=== PATIENT | female | born 1960 | race Caucasian/White ===

== ENCOUNTER 2017-04-30 08:00 | Outpatient (CLI) | payer BC, OTHER ==
[2017-04-30 13:24] LABS: BASOPHILS % (AUTO) 0.5 %; EOSINOPHILS # (AUTO) 0.1 10^3/uL (0.0-0.7); EOSINOPHILS % (AUTO) 0.8 %; HCT - HEMATOCRIT 40.5 % (37.0-47.0); HGB - HEMOGLOBIN 13.6 g/dL (12.0-16.0); LYMPHOCYTES # (AUTO) 1.6 10^3/uL (1.5-3.5); LYMPHOCYTES % (AUTO) 21.9 %; MEAN CORPUSCULAR HEMOGLOBIN 29.8 pg (27.0-31.0); MEAN CORPUSCULAR HGB CONC 33.6 g/dL (32.0-36.0); MEAN CORPUSCULAR VOLUME 88.7 fL (81.0-99.0); MEAN PLATELET VOLUME 8.2 fL (7.9-10.8); MONOCYTES # (AUTO) 0.4 10^3/uL (0.0-1.0); NEUTROPHILS # (AUTO) 5.1 10^3/uL (1.5-6.6); NEUTROPHILS % (AUTO) 70.8 %; NUCLEATED RED BLOOD CELLS AUTO 0.1 /100WBC; RED BLOOD COUNT 4.57 10^6/uL (4.20-5.40); RED CELL DISTRIBUTION WIDTH 13.2 % (12.0-15.0); UNCORRECTED WHITE BLOOD COUNT 7.1 x10^3/uL; WHITE BLOOD COUNT 7.1 x10^3/uL (4.8-10.8)
[2017-04-30 14:00] LABS: HEMOGLOBIN A1C 0.5 g/dL
[2017-04-30 14:08] LABS: ALBUMIN/GLOBULIN RATIO 1.4 (1.0-2.2); BILIRUBIN,TOTAL 0.6 mg/dL (0.2-1.0); BUN - BLOOD UREA NITROGEN 22 mg/dL (6-20); CALCIUM 9.4 mg/dL (8.5-10.3); CARBON DIOXIDE - CO2 26 mmol/L (21-32); CHLORIDE 102 mmol/L (101-111); CHOL/HDL RATIO 3.4 (<4.4); CHOLESTEROL 201 mg/dL; CREATININE 0.9 mg/dL (0.4-1.0); GFR - MDRD 65 (>89); GLUCOSE 97 mg/dL (70-100); HDL CHOLESTEROL 59 mg/dL; LDL/HDL RATIO 2.2 (<4.4); POTASSIUM 4.3 mmol/L (3.5-5.0); SODIUM 135 mmol/L (135-145); TOTAL PROTEIN 7.4 g/dL (6.7-8.2); TRIGLYCERIDES 56 mg/dL; VLDL CHOLESTEROL 11 mg/dL
== END 2017-04-30 08:01 | disposition home or self-care (01) ==
LOC: LAB.WCP 08:00
PROVIDERS: ATTEND Family Medicine
DX: Z00.00 Encounter for general adult medical examination without abnormal findings (principal); R73.03 Prediabetes
CPT/HCPCS: 36415; 80053; 80061; 83036; 84443; 85025

== ENCOUNTER 2017-10-30 07:20 | Outpatient (CLI) | payer BC ==
--- NOTE | 2017-10-30 08:14 | CT Report ---
EXAM: CT ABDOMEN AND PELVIS EXAM DATE: 10/30/2017 08:02 AM. CLINICAL HISTORY: HEMTURIA, FLANK PAIN, RIGHT. COMPARISONS: 03/27/2009. TECHNIQUE: Routine helical CT imaging was performed through the abdomen and pelvis. IV contrast: Amt/ type. Enteric contrast: No. Reconstructions: Coronal and sagittal. In accordance with CT protocol optimization, one or more of the following dose reduction techniques w ere utilized for this exam: automated exposure control, adjustment of mA and/or KV based on patient s ize, or use of iterative reconstructive technique. FINDINGS: Lung Bases: Unremarkable. Liver: Normal. No masses. Gallbladder/Bile Ducts: Unremarkable. Spleen: Normal. Pancreas: Normal. Adrenal Glands: Normal. Kidneys: No hydronephrosis or asymmetric perinephric stranding. No calculi noted within the urinary c ollecting system. Peritoneal Cavity/Bowel: Normal. No free fluid, free air or adenopathy. No masses or acute inflammato ry process. The appendix is well visualized and normal. Pelvic Organs: Normal. The bladder and visualized pelvic organs are within normal limits. Vasculature: No aneurysms or other significant abnormality. Bones: No significant abnormality. Other: None. IMPRESSION: No hydronephrosis or urinary calculi. [facility] Referring Provider Line: [phone] SITE ID: [id number]
== END 2017-10-30 07:21 | disposition home or self-care (01) ==
LOC: DI 07:20
PROVIDERS: ATTEND Family Medicine
DX: R31.9 Hematuria, unspecified (principal)
CPT/HCPCS: 74176

== ENCOUNTER 2020-07-01 17:21 | Outpatient (CLI) | payer OTHER | END 2020-07-01 17:22 | disposition home or self-care (01) | LOC: COV 17:21 | PROVIDERS: ATTEND Family Medicine | DX: Z20.828 Contact with and (suspected) exposure to other viral communicable diseases (principal) ==

== ENCOUNTER 2021-08-11 16:26 | Outpatient (CLI) | payer OTHER ==
--- NOTE | 2021-08-11 17:05 | XRAY Report ---
PROCEDURE: Knee 4 View RT INDICATIONS: R KNEE PX TECHNIQUE: 4 views of the right knee(s) were acquired. COMPARISON: None. FINDINGS: Bones: No fractures or dislocations. Mild to moderate tricompartmental osteoarthritis is seen more prominent in medial femoral tibial compartment. No patellar subluxation. No suspicious bony lesions. Soft tissues: No joint effusion. No suspicious soft tissue calcifications. IMPRESSION: Mild to moderate tricompartmental osteophyte is more prominent in medial femoral tibial compartment. No fracture or dislocation. No significant joint effusion. Reviewed by: Casa Clemens MD on 08/11/2021 5:04 PM PST Approved by: Casa Clemens MD on 08/11/2021 5:04 PM PST Station ID: [id number]
== END 2021-08-11 16:27 | disposition home or self-care (01) ==
LOC: DI.N 16:26
PROVIDERS: ATTEND Family Medicine
DX: M25.761 Osteophyte, right knee (principal)

== ENCOUNTER 2022-05-06 11:02 | Outpatient (CLI) | payer OTHER ==
--- NOTE | 2022-05-07 12:53 | Mammography Report ---
BILATERAL DIGITAL SCREENING MAMMOGRAM 3D/2D: 05/06/2022 CLINICAL: Family history of breast cancer. Routine screening. Comparison is made to exams dated: 05/13/2017 mammogram, 12/27/2014 mammogram, and 08/10/2013 mammogram - [facility]. Both breasts are heterogeneously dense, which may obscure small masses (category c / 51-75% glandular tissue). There are benign vascular calcifications in the left breast. No significant masses, calcifications, or other findings are seen in either breast. There has been no significant interval change. IMPRESSION: BENIGN There is no mammographic evidence of malignancy. A 1 year screening mammogram is recommended. This exam was interpreted at Station ID: [id number]. NOTE: For mammograms, a report in lay terms will be sent to the patient. Approximately 15% of breast malignancies will not be visualized mammographically. In the management of a palpable breast mass, a negative mammogram must not discourage biopsy of a clinically suspicious lesion. Electronically Signed By: Jam Martinez M.D., jr/arlet:05/06/2022 15:17:07 ACR BI-RADS Category 2: Benign Finding(s) 3342F PARENCHYMAL PATTERN: (D) - The breast(s) demonstrate(s) heterogeneously dense fibroglandular javad green. BI-RADS CATEGORY: (2) - 2 RECOMMENDATION: (ANNUAL) - Recommend routine annual screening mammography. [id number] 1 year screening LATERALITY: (B)
== END 2022-05-06 11:03 | disposition home or self-care (01) ==
LOC: DI.N 11:02
PROVIDERS: ATTEND Physician Assistant
DX: Z12.31 Encounter for screening mammogram for malignant neoplasm of breast (principal); Z80.3 Family history of malignant neoplasm of breast

== ENCOUNTER 2022-05-08 07:25 | Outpatient (CLI) | payer OTHER ==
[2022-05-08 12:04] LABS: BASOPHILS # (AUTO) 0.1 10^3/uL (0.0-0.1); BASOPHILS % (AUTO) 0.6 %; EOSINOPHILS # (AUTO) 0.1 10^3/uL (0.0-0.7); EOSINOPHILS % (AUTO) 1.3 %; HCT - HEMATOCRIT 41.7 % (37.0-47.0); HGB - HEMOGLOBIN 13.2 g/dL (12.0-16.0); LYMPHOCYTES % (AUTO) 25.2 %; MEAN CORPUSCULAR HEMOGLOBIN 28.9 pg (27.0-31.0); MEAN CORPUSCULAR HGB CONC 31.7 g/dL (32.0-36.0); MEAN CORPUSCULAR VOLUME 91.2 fL (81.0-99.0); MEAN PLATELET VOLUME 10.5 fL (7.9-10.8); MONOCYTES # (AUTO) 0.5 10^3/uL (0.0-1.0); MONOCYTES % (AUTO) 6.9 %; NEUTROPHILS # (AUTO) 5.2 10^3/uL (1.5-6.6); NEUTROPHILS % (AUTO) 65.7 %; PLT - PLATELET COUNT 260 10^3/uL (130-450); RED BLOOD COUNT 4.57 10^6/uL (4.20-5.40); RED CELL DISTRIBUTION WIDTH 13.7 % (12.0-15.0); WHITE BLOOD COUNT 7.9 x10^3/uL (4.8-10.8)
[2022-05-08 12:31] LABS: ALBUMIN 4.3 g/dL (3.2-5.5); ALBUMIN/GLOBULIN RATIO 1.3 (1.0-2.2); ALKALINE PHOSPHATASE 74 IU/L (42-121); ALT ALANINE AMINOTRANSFERASE 16 IU/L (10-60); AST ASPARTATE AMINOTRANSFERASE 20 IU/L (10-42); BILIRUBIN,TOTAL 0.7 mg/dL (0.2-1.0); BUN - BLOOD UREA NITROGEN 37 mg/dL (6-20); CALCIUM 9.6 mg/dL (8.5-10.3); CARBON DIOXIDE - CO2 27 mmol/L (21-32); CHLORIDE 103 mmol/L (101-111); CHOL/HDL RATIO 3.6 (<4.4); CHOLESTEROL 215 mg/dL; CREATININE 0.8 mg/dL (0.4-1.0); GFR - MDRD 73 (>89); GLUCOSE 105 mg/dL (70-100); HDL CHOLESTEROL 60 mg/dL; LDL CHOLESTEROL,CALCULATED 145 mg/dL; LDL/HDL RATIO 2.4 (<4.4); SODIUM 138 mmol/L (135-145); TOTAL PROTEIN 7.6 g/dL (6.7-8.2); TRIGLYCERIDES 51 mg/dL; VLDL CHOLESTEROL 10 mg/dL
[2022-05-08 12:42] LABS: THYROID STIMULATING HORMONE 3.21 uIU/mL (0.34-5.60)
== END 2022-05-08 07:26 | disposition home or self-care (01) ==
LOC: LAB.N 07:25
PROVIDERS: ATTEND Physician Assistant
DX: E78.5 Hyperlipidemia, unspecified (principal); Z51.81 Encounter for therapeutic drug level monitoring; Z13.29 Encounter for screening for other suspected endocrine disorder
CPT/HCPCS: 36415; 80053; 80061; 83721; 84443; 85025

== ENCOUNTER 2022-06-03 09:54 | Outpatient (CLI) | payer OTHER ==
--- NOTE | 2022-06-03 13:06 | XRAY Report ---
PROCEDURE: Hips 2V BILAT INDICATIONS: L HIP PX TECHNIQUE: AP view of the pelvis and lateral views of the hips bilaterally. COMPARISON: None FINDINGS: Bones: No fractures or dislocations. No suspicious bony lesions. The visualized pelvic ring appear s intact. Soft tissues: No suspicious soft tissue calcifications or masses. IMPRESSION: Normal pelvis and bilateral hips. Reviewed by: Ezra Garibay on 06/03/2022 1:05 PM [facility] Approved by: Ezra Garibay on 06/03/2022 1:05 PM [facility] Station ID: [id number]
== END 2022-06-03 09:55 | disposition home or self-care (01) ==
LOC: DI.N 09:54
PROVIDERS: ATTEND Physician Assistant
DX: M25.552 Pain in left hip (principal)

== ENCOUNTER 2023-02-17 11:17 | Outpatient (CLI) | payer OTHER ==
--- NOTE | 2023-02-17 14:37 | XRAY Report ---
PROCEDURE: Knee 3 View RT INDICATIONS: KNEE PAIN TECHNIQUE: 3 views of the right knee(s) were acquired. COMPARISON: None. FINDINGS: Bones: No fractures or dislocations. No suspicious bony lesions. Moderate medial and lateral compar tmental joint space narrowing with marginal osteophyte Soft tissues: Small knee joint effusion. No suspicious soft tissue calcifications or masses. IMPRESSION: Moderate osteoarthritis Reviewed by: Pasha Vogel MD on 02/17/2023 1:36 PM [facility] Approved by: Pasha Vogel MD on 02/17/2023 1:36 PM [facility] Station ID: [id number]
== END 2023-02-17 11:18 | disposition home or self-care (01) ==
LOC: DI 11:17
PROVIDERS: ATTEND Physician Assistant
DX: M17.11 Unilateral primary osteoarthritis, right knee (principal)

== ENCOUNTER 2023-08-26 16:42 | Outpatient (CLI) | payer OTHER ==
--- NOTE | 2023-08-28 12:40 | XRAY Report ---
PROCEDURE: Knee 3V RT INDICATIONS: PAIN IN RIGHT KNEE TECHNIQUE: 3 views of the knee(s) were acquired. COMPARISON: None. FINDINGS: Bones: No fractures or dislocations. No suspicious bony lesions. There are small tricompartmental o steophytes. There is narrowing of the medial femorotibial compartment. Soft tissues: Moderate knee joint effusion. No suspicious soft tissue calcifications or masses. IMPRESSION: Mild to moderate knee osteoarthritis and moderate knee joint effusion. Reviewed by: Paola Banda MD on 08/28/2023 12:38 PM PST Approved by: Paola Banda MD on 08/28/2023 12:38 PM PST Station ID: [id number]
== END 2023-08-26 16:43 | disposition home or self-care (01) ==
LOC: DI 16:42
PROVIDERS: ATTEND Registered Nurse
DX: M17.11 Unilateral primary osteoarthritis, right knee (principal); M25.461 Effusion, right knee

== ENCOUNTER 2023-11-12 10:05 | Emergency (ER) | payer OTHER ==
--- NOTE | 2023-11-12 10:16 | ED Physician Documentation ---
PD HPI CHEST PAIN - Stated complaint Stated Complaint: CP/DIZZY/RT ARM NUMB - History obtained from History obtained from: Patient - Additional information Additional information: Patient is a 63-year-old female Without any significant past medical history presenting for evaluation of an episode of right-sided chest pain with numbness into the right arm and feeling lightheaded with standing. This occurred around 9:00 while she was working at her desk at the [employer]. She states that lasted for approximately 5 minutes and has not recurred. She denies other episodes of similar pain. She denies that she was exerting herself when the pain started. 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 Patient denies a history of high blood pressure, diabetes, high cholesterol. Does not smoke. No recent travel or immobilization or history of DVT/PE. Review of Systems Constitutional: denies: Fever Cardiac: reports: Chest pain / pressure Respiratory: denies: Dyspnea GI: denies: Abdominal Pain Neurologic: denies: Headache PD PAST MEDICAL HISTORY - Past Medical History Cardiovascular: None Respiratory: None Endocrine/Autoimmune: None GI: None : None HEENT: None Psych: None Musculoskeletal: None Derm: Other - Present Medications Home Medications: Ambulatory Orders Medication Instructions Recorded Confirmed No Known Home Medications 11/12/23 11/12/23 - Allergies Allergies/Adverse Reactions: Allergies Allergy/AdvReac Type Severity Reaction Status Date / Time No Known Drug Allergies Allergy Verified 11/12/23 10:24 PD ED PE NORMAL - General General: Alert and oriented X 3, No acute distress, Well developed/nourished - HEENT HEENT: Atraumatic, PERRL, EOMI, Moist mucous membranes, Pharynx benign - Neck Neck: Supple, no meningeal sign - Cardiac Cardiac: RRR, Strong equal pulses - Respiratory Respiratory: No respiratory distress - Abdomen Abdomen: Normal bowel sounds, Soft, Non tender, Non distended - Back Back: No spinal TTP - Derm Derm: Warm and dry - Extremities Extremities: No deformity, No calf tenderness / cord - Neuro Neuro: Alert and oriented X 3, mattress filler 2-12 intact, No motor deficit, No sensory deficit, Other (Normal unassisted gait) Results - Vitals Vitals: Vital Signs - 24 hr 11/12/23 11/12/23 11/12/23 10:16 10:23 12:33 Temperature 36.5 C 36.1 C L Heart Rate 73 73 Respiratory 23 16 Rate Blood Pressure 147/76 H 140/66 H Blood Pressure 147/76 H [Right] O2 Saturation 100 99 11/12/23 13:29 Temperature 36.4 C L Heart Rate 86 Respiratory 24 Rate Blood Pressure 128/70 Blood Pressure [Right] O2 Saturation 98 Oxygen O2 Source Room air - EKG (time done) 1013 EKG releavant findings:: EKG personally interpreted by author of this note. Relevant findings are: Rate 65, normal sinus rhythm, no STEMI, QTc 434, T wave flattening in all leads, no prior for comparison - Labs Labs: Laboratory Tests 11/12/23 11/12/23 11/12/23 10:39 10:39 12:43 WBC 7.5 RBC 4.62 Hgb 13.2 Hct 42.0 MCV 90.9 MCH 28.6 MCHC 31.4 L RDW 13.0 Plt Count 266 MPV 9.4 Neut # (Auto) 5.1 Lymph # (Auto) 1.8 [place] # (Auto) 0.6 Eos # (Auto) 0.1 Baso # (Auto) 0.1 Absolute Nucleated RBC 0.00 Nucleated RBC % 0.0 Sodium 138 Potassium 4.1 Chloride 104 Carbon Dioxide 28 Anion Gap 6.0 BUN 20 Creatinine 0.9 Estimated GFR (MDRD) 63 L Glucose 106 H Calcium 10.3 Total Bilirubin 0.7 AST 13 ALT 11 Alkaline Phosphatase 77 Troponin I High Sens 3.5 3.9 Total Protein 7.3 Albumin 4.3 Globulin 3.0 Albumin/Globulin Ratio 1.4 Lipase 11 PD Medical Decision Making - ED course Complexity details: reviewed results, re-evaluated patient, d/w patient ED course: Patient is a 63-year-old female presenting for evaluation of right-sided chest pain that occurred for 5 minutes this morning. EKG is reviewed and without signs of acute ischemia. CBC, chemistries, troponin x 2 were obtained and without significant findings. Chest x-ray which I reviewed is clear. The patient has been asymptomatic here. No history of hypertension, diabetes or hyperlipidemia. No symptoms to suggest pulmonary embolism or aortic dissection. Patient counseled on need for close follow-up with primary care provider as well as advised on strict return precautions should her symptoms recur. Departure - Departure Disposition: 01 Home, Self Care Clinical Impression: Chest pain Condition: Stable Instructions: ED Chest Pain Atypical Unkn Cause Comments: Your testing at this time does not show a cause for your chest pain. I do not see signs of a heart attack and your x-ray is clear. I would recommend close follow-up with your primary care doctor as you may need further testing. Please return to the ER if you develop a recurrence of your symptoms or any new concerning symptoms. Discharge Date/Time: 11/12/23 13:38
[2023-11-12 10:44] LABS: BASOPHILS # (AUTO) 0.1 10^3/uL (0.0-0.1); BASOPHILS % (AUTO) 0.7 %; EOSINOPHILS # (AUTO) 0.1 10^3/uL (0.0-0.7); EOSINOPHILS % (AUTO) 0.7 %; HGB - HEMOGLOBIN 13.2 g/dL (12.0-16.0); LYMPHOCYTES # (AUTO) 1.8 10^3/uL (1.5-3.5); LYMPHOCYTES % (AUTO) 23.2 %; MEAN CORPUSCULAR HEMOGLOBIN 28.6 pg (27.0-31.0); MEAN CORPUSCULAR HGB CONC 31.4 g/dL (32.0-36.0); MEAN CORPUSCULAR VOLUME 90.9 fL (81.0-99.0); MEAN PLATELET VOLUME 9.4 fL (7.9-10.8); MONOCYTES # (AUTO) 0.6 10^3/uL (0.0-1.0); MONOCYTES % (AUTO) 7.7 %; NEUTROPHILS # (AUTO) 5.1 10^3/uL (1.5-6.6); NEUTROPHILS % (AUTO) 67.4 %; PLT - PLATELET COUNT 266 10^3/uL (130-450); RED BLOOD COUNT 4.62 10^6/uL (4.20-5.40); WHITE BLOOD COUNT 7.5 x10^3/uL (4.8-10.8)
--- NOTE | 2023-11-12 10:47 | XRAY Report ---
PROCEDURE: Chest 1V INDICATIONS: CP TECHNIQUE: One view of the chest was acquired. COMPARISON: None. FINDINGS: Surgical changes and devices: None. Lungs and pleura: No pleural effusions or pneumothorax. Lungs are clear. Mediastinum: Mediastinal contours appear normal. Heart size is normal. Bones and chest wall: No suspicious bony lesions. Overlying soft tissues appear unremarkable. IMPRESSION: No acute cardiopulmonary process. Reviewed by: Casa Clemens MD on 11/12/2023 10:45 AM PDT Approved by: Casa Clemens MD on 11/12/2023 10:45 AM PDT Station ID: [id number]
[2023-11-12 11:12] LABS: TROPONIN I HIGH SENSITIVITY 3.5 ng/L (2.3-14.8)
[2023-11-12 11:13] LABS: ALBUMIN 4.3 g/dL (3.2-5.5); ALBUMIN/GLOBULIN RATIO 1.4 (1.0-2.2); BILIRUBIN,TOTAL 0.7 mg/dL (0.2-1.0); CALCIUM 10.3 mg/dL (8.5-10.3); CREATININE 0.9 mg/dL (0.6-1.3); POTASSIUM 4.1 mmol/L (3.5-4.5); TOTAL PROTEIN 7.3 g/dL (6.4-8.9)
[2023-11-12 13:33] VITALS: BP 128/70; O2SAT 98
== END 2023-11-12 13:38 | disposition home or self-care (01) ==
LOC: ED 10:05
DX: R07.9 Chest pain, unspecified (principal)
CPT/HCPCS: 36415; 80053; 83690; 84484; 85025; 93005; 99284

== ENCOUNTER 2024-03-16 08:00 | Outpatient (CLI) | payer OTHER | END 2024-03-16 08:15 | disposition home or self-care (01) | LOC: LAB.N 08:00 | PROVIDERS: ATTEND Physician Assistant Medical | DX: R30.0 Dysuria (principal) | CPT/HCPCS: 87086 ==